=== PATIENT | female | born 1935 | race Caucasian/White ===

== ENCOUNTER 2019-11-15 13:22 | Outpatient (CLI) | payer MEDICARE, SELFPAY ==
--- NOTE | 2019-11-15 13:20 | XR_ITS ---
WS: [id number] LUMBAR SPINE TECHNIQUE: 3 views of the lumbar spine CLINICAL INFORMATION: LOW BACK PAIN COMPARISON: None. FINDINGS: Five [id number] lumbar vertebral bodies. Osteopenia. Mild lumbar curve convex right. Mild compre ssion superior endplate L4 likely chronic. Aortic calcification. Disc space heights are well preserve d. Mild facet arthropathy lower lumbar spine. Pelvic phleboliths. XR/XR lumbar spine 2-3V* [id number] IMPRESSION: 1. Osteopenia. 2. Mild compression superior endplate L4 likely chronic. 3. Aortic calcification. 4. Mild to moderate facet arthropathy lower lumbar spine.
== END 2019-11-15 13:23 | disposition home or self-care (01) ==
PROVIDERS: PCP Chiropractor; Visit Provider Chiropractor
DX: M54.5 Low back pain (principal); M85.88 Other specified disorders of bone density and structure, other site; I70.0 Atherosclerosis of aorta; M47.816 Spondylosis without myelopathy or radiculopathy, lumbar region
CPT/HCPCS: 72100

== ENCOUNTER 2020-10-23 15:05 | Emergency (ER) | payer MEDICARE, MEDICAID, SELFPAY ==
[2020-10-23 15:15] VITALS: BP 191/98; PULSE 71; RESP 18; TEMP 36.7; O2SAT 96; BMI 26.5
--- NOTE | 2020-10-23 15:27 | ED_ITS ---
HPI - Neuro Symptoms/Deficit General: Chief Complaint: Neuro Symptoms/Deficit Stated Complaint: POSSIBLE CVA Time Seen by Provider: 10/23/20 15:10 Source: family Limitations: altered mental status History of Present Illness: HPI Narrative: Ms Kelly is an 85 year old lady Without significant past medical history who presents to the emergency department due to stroke like symptoms. History is aided by the patient's daughter at bedside as the patient has altered mental status and marked aphasia which severely limits patient history taking. Reportedly she is somewhat new to a halfway the overall in fairly good health. Family first noticed her seeming slightly off from normal On 10/20 when she seemed to have more difficulty with using her right arm. Her symptoms subsequently progressed over the next few days and the patient now has marked dysarthric speech which is far from her baseline. the course has been worsening. The intensity is fear appeared she has never had any episodes of the past similar to this. Family has been with her and denies trauma. There are no other known specific provoking, exacerbating, or alleviating factors. Review of Systems General: Reports: ROS unobtainable due to mental status Narrative: Unable to obtain aside from as noted in HPI from family due to mental status change and aphasia Physical Exam Narrative: EXAM NARRATIVE: GENERAL/CONSTITUTIONAL - Ill appearing with obvious neuro deficits. Eyes - PERRL, no conjunctival injection ENMT - Atraumatic external nose and ears. Moist mucous membranes NECK - supple. trachea midline CARDIOVASCULAR - regular rate and rhythm. Peripheral pulses 2+ and equal RESPIRATORY - Transmitted upper airway noises. clear to auscultation bilaterally. No retractions or accessory muscle use. ABDOMEN/GI - Nontender/Nondistended. No tenderness to percussion or evidence of peritonitis MSK - Extremities without obvious deformity or injury SKIN - Warm, Dry NEURO - Marked dysarthria transiently with aphasia other times. Patient appears to understand some questions but not complex ones. Facial droop and strength assymetry noted. PSYCH - Impaired cognition Course ED course: - Monitor, IV access, and vital signs obtained. - The patient was seen and evaluated me at bedside. - Initial evaluation was notable for obvious neuro deficits, no evidence of traumatic mechanism. Unfortunately, onset was days ago - Labs and imaging were ordered. - Labs notable for no acute abnormality to explain stroke like symptoms. - Imaging notable for large area of vasogenic edema and multiple tumors which are likely metastatic in nature. - Decadron ordered - Results were discussed with patient?s daughter at bedside who discussed with other family while we were seeking arrangements for transfer. - The patient?s daughter decided that the patient would not want transfer or further intervention. This decision was made involving the patient as best as possible given current status. I confirmed this to the best of my ability with the patient. I explained to the patient?s daughter that the patient would certainly , though timeline is unclear, without treatment. She verbalized understanding. 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 The presence of a primary tumor was not known to the family and thus would require extensive further diagnosis and treatment. The family is familiar with hospice process and desire this going forward. They would like the patient discharged back to the snf. This is a sad situation but ultimately, I feel, given risks and benefits in the clinical context, that this is a reasonable decision for the family to make and appropriately in the interest of the patient. - Her SNF will facilitate hospice service tomorrow morning. - Prescriptions will be sent with the patient to the SNF, who has protocols and is familiar with use, for palliation of symptoms. - Patient was discharged after transport arranged back to SNF. Vital Signs: Vital signs: Vital Signs Temperature 98.0 F 10/23/20 15:15 Pulse Rate 87 10/23/20 19:45 Respiratory Rate 18 10/23/20 19:45 Blood Pressure 178/90 10/23/20 19:45 Pulse Oximetry 98 10/23/20 19:45 MDM - Neuro Symptoms/Deficit Medical Records: Attestation: I reviewed the patient's medical records. Lab Data: Attestation: I reviewed the patient's lab results. Labs: Lab Results 10/23/20 10/23/20 10/23/20 Range/Units 15:52 15:55 15:55 WBC 8.3 (4.0-10.0) 10^3/ uL RBC 4.76 (4.1-5.3) 10^6/u L Hgb 14.3 (11.5-15.3) g/dL Hct 42.8 (37.0-47.0) % MCV 89.9 (81-99) fL MCH 30.0 (28.0-34.0) pg MCHC 33.4 (30.0-36.0) g/dL RDW 13.7 (12.1-15.1) % Plt Count 257 (130-400) 10^3/c mm MPV 9.4 (7.4-10.4) fL Neut % (Auto) 76.4 % Lymph % (Auto) 15.1 % Barton % (Auto) 7.2 % Eos % (Auto) 0.6 % Baso % (Auto) 0.5 % Neut # (Auto) 6.35 (1.8-7.7) 10^3/u L Lymph # (Auto) 1.3 (0.8-4.8) 10^3/u L Barton # (Auto) 0.6 (0.2-0.9) 10^3/u L Eos # (Auto) 0.1 (0.0-0.8) 10^3/u L Baso # (Auto) 0.0 (0.0-0.1) 10^3/u L Nucleated RBC % (a uto) 0 % Nucleated RBCs # 0.0 /100WBC Sodium 128 L (136-145) mmol/L Potassium 4.8 (3.5-5.1) mmol/L Chloride 94 L (98-107) mmol/L Carbon Dioxide 23 (22-29) mmol/L Anion Gap 15.8 (5-19) BUN 22 (8-23) mg/dL Creatinine 0.5 (0.5-0.9) mg/dL GFR Calculation Not Reportable Glucose 106 (65-115) mg/dL POC Glucose 121 H (70-110) mg/dL Calculated Osmolal ity 270 L (285-295) mOsm/k g Lactate (0.5-2.2) mmol/L Calcium 8.9 (8.5-10.5) mg/dL Total Bilirubin 0.4 (0.15-1.2) mg/dL AST 20 (0-32) U/L ALT 10 (0-33) U/L Alkaline Phosphata se 65 (35-105) IU/L Troponin T Baselin e (0-10) ng/L Troponin T 120 Min cherokee (0-10) ng/L Delta Troponin T (0-10) ABS# Total Protein 6.6 (6.6-8.7) g/dL Albumin 3.4 L (3.5-5.2) g/dL Globulin 3.2 (1.3-4.6) g/dL Procalcitonin 0.05 (0-0.5) ng/mL TSH 1.48 (0.27-4.20) uIU/ mL Free T4 1.77 (0.82-1.77) ng/d L Urine Color (Yellow) Urine Appearance (CLEAR) Urine pH (5-7) Ur Specific Gravit y (1.005-1.030) Urine Protein (Negative) Urine Glucose (UA) (Normal) Urine Ketones (Negative) Urine Blood (Negative) Urine Nitrate (Negative) Urine Bilirubin (Negative) Urine Urobilinogen (Negative) mg/dL Ur Leukocyte Mary ase (Negative) Urine RBC (0-2) /hpf Urine WBC (0-5) /hpf Ur Squamous Epith Cells (0-5) /hpf Amorphous Sediment Urine Bacteria (NONE) /hpf 10/23/20 10/23/20 10/23/20 Range/Units 15:55 15:55 16:00 WBC (4.0-10.0) 10^3/ uL RBC (4.1-5.3) 10^6/u L Hgb (11.5-15.3) g/dL Hct (37.0-47.0) % MCV (81-99) fL MCH (28.0-34.0) pg MCHC (30.0-36.0) g/dL RDW (12.1-15.1) % Plt Count (130-400) 10^3/c mm MPV (7.4-10.4) fL Neut % (Auto) % Lymph % (Auto) % Barton % (Auto) % Eos % (Auto) % Baso % (Auto) % Neut # (Auto) (1.8-7.7) 10^3/u L Lymph # (Auto) (0.8-4.8) 10^3/u L Barton # (Auto) (0.2-0.9) 10^3/u L Eos # (Auto) (0.0-0.8) 10^3/u L Baso # (Auto) (0.0-0.1) 10^3/u L Nucleated RBC % (a uto) % Nucleated RBCs # /100WBC Sodium (136-145) mmol/L Potassium (3.5-5.1) mmol/L Chloride (98-107) mmol/L Carbon Dioxide (22-29) mmol/L Anion Gap (5-19) BUN (8-23) mg/dL Creatinine (0.5-0.9) mg/dL GFR Calculation Glucose (65-115) mg/dL POC Glucose (70-110) mg/dL Calculated Osmolal ity (285-295) mOsm/k g Lactate 1.2 (0.5-2.2) mmol/L Calcium (8.5-10.5) mg/dL Total Bilirubin (0.15-1.2) mg/dL AST (0-32) U/L ALT (0-33) U/L Alkaline Phosphata se (35-105) IU/L Troponin T Baselin e 39 H (0-10) ng/L Troponin T 120 Min [place] (0-10) ng/L Delta Troponin T (0-10) ABS# Total Protein (6.6-8.7) g/dL Albumin (3.5-5.2) g/dL Globulin (1.3-4.6) g/dL Procalcitonin (0-0.5) ng/mL TSH (0.27-4.20) uIU/ mL Free T4 (0.82-1.77) ng/d L Urine Color Yellow (Yellow) Urine Appearance Sl hazy (CLEAR) Urine pH 5 (5-7) Ur Specific Gravit y 1.020 (1.005-1.030) Urine Protein Neg (Negative) Urine Glucose (UA) Norm (Normal) Urine Ketones Negative (Negative) Urine Blood 3+ H (Negative) Urine Nitrate Negative (Negative) Urine Bilirubin Neg (Negative) Urine Urobilinogen Norm (Negative) mg/dL Ur Leukocyte Mary ase Negative (Negative) Urine RBC >100 H (0-2) /hpf Urine WBC None (0-5) /hpf Ur Squamous Epith Cells None (0-5) /hpf Amorphous Sediment Not Reportable Urine Bacteria Trace (NONE) /hpf 10/23/20 Range/Units 17:59 WBC (4.0-10.0) 10^3/ uL RBC (4.1-5.3) 10^6/u L Hgb (11.5-15.3) g/dL Hct (37.0-47.0) % MCV (81-99) fL MCH (28.0-34.0) pg MCHC (30.0-36.0) g/dL RDW (12.1-15.1) % Plt Count (130-400) 10^3/c mm MPV (7.4-10.4) fL Neut % (Auto) % Lymph % (Auto) % Barton % (Auto) % Eos % (Auto) % Baso % (Auto) % Neut # (Auto) (1.8-7.7) 10^3/u L Lymph # (Auto) (0.8-4.8) 10^3/u L Barton # (Auto) (0.2-0.9) 10^3/u L Eos # (Auto) (0.0-0.8) 10^3/u L Baso # (Auto) (0.0-0.1) 10^3/u L Nucleated RBC % (a uto) % Nucleated RBCs # /100WBC Sodium (136-145) mmol/L Potassium (3.5-5.1) mmol/L Chloride (98-107) mmol/L Carbon Dioxide (22-29) mmol/L Anion Gap (5-19) BUN (8-23) mg/dL Creatinine (0.5-0.9) mg/dL GFR Calculation Glucose (65-115) mg/dL POC Glucose (70-110) mg/dL Calculated Osmolal ity (285-295) mOsm/k g Lactate (0.5-2.2) mmol/L Calcium (8.5-10.5) mg/dL Total Bilirubin (0.15-1.2) mg/dL AST (0-32) U/L ALT (0-33) U/L Alkaline Phosphata se (35-105) IU/L Troponin T Baselin e (0-10) ng/L Troponin T 120 Min [place] 37.40 H (0-10) ng/L Delta Troponin T -1.60 L (0-10) ABS# Total Protein (6.6-8.7) g/dL Albumin (3.5-5.2) g/dL Globulin (1.3-4.6) g/dL Procalcitonin (0-0.5) ng/mL TSH (0.27-4.20) uIU/ mL Free T4 (0.82-1.77) ng/d L Urine Color (Yellow) Urine Appearance (CLEAR) Urine pH (5-7) Ur Specific Gravit y (1.005-1.030) Urine Protein (Negative) Urine Glucose (UA) (Normal) Urine Ketones (Negative) Urine Blood (Negative) Urine Nitrate (Negative) Urine Bilirubin (Negative) Urine Urobilinogen (Negative) mg/dL Ur Leukocyte Mary ase (Negative) Urine RBC (0-2) /hpf Urine WBC (0-5) /hpf Ur Squamous Epith Cells (0-5) /hpf Amorphous Sediment Urine Bacteria (NONE) /hpf EKG Data^: EKG 1: Attestation: I personally reviewed and interpreted this EKG as follows: EKG interpretation date: 10/23/20 Prior EKG tracings: not available for review Ischemic changes: non-specific ST-T wave changes Interpretation: 12 lead EKG shows a regular sinus rhythm at a rate of 70. ME interval 208 . Left axis deviation. No St segment abnormalities meeting stemi criteria. Interpretation : sinus rhythm. Left axis deviation. 1st degree AV block EKG 2: Attestation: I personally reviewed and interpreted this EKG as follows: EKG interpretation date: 10/23/20 Prior EKG tracings: available for review Ischemic changes: non-specific ST-T wave changes Interpretation: 12 lead EKG shows a regular sinus rhythm at a rate of 69. ME interval 205. Left axis deviation. No St segment abnormalities meeting stemi criteria. Interpretation : sinus rhythm. Left axis deviation. 1st degree AV block. Similar to prior Critical Care Time Critical Care Time: Critical Care Time: Yes Total Critical Care Time: 35 Attestation: This case had a high probability of a clinically significant, sudden, or life threatening deterioration of this patient's condition which required my full and direct attention, intervention and personal management. Discharge Plan Discharge Patient Disposition: [facility] Clinical Impression: Brain metastases, Stroke-like symptom, Cerebral edema Condition: Critical Referrals: Rodolfo Garcia [Primary Care Provider] - Discharge Diet: Usual diet Discharge Activity: Resume usual activity Patient Instructions: Brain Metastasis (GEN) Activity Restrictions/Additional Instructions: Thank you for visiting the emergency department. You were seen and evaluated for strokelike symptoms. You were found to have brain tumors which are likely metastatic in nature and significant amount of swelling which likely explains your symptoms. We offered emergency transfer which you declined. Please follow-up with your primary care provider. Please return to the emergency department for any reason that you feel is necessary. Coding Level of Care Code ED Water Valve Repairer for Sindy Harris
--- NOTE | 2020-10-23 15:28 | CTR_ITS ---
PROCEDURE INFORMATION: Exam: CT Head Without Contrast Exam date and time: 10/23/2020 3:28 PM Age: 85 years old Clinical indication: Weakness, extremity; Right; Additional info: Stroke like symptoms TECHNIQUE: Imaging protocol: Computed tomography of the head without contrast. Radiation optimization: All CT scans at this facility use at least one of these dose optimization techniques: automated exposure control; mA and/or kV adjustment per patient size (includes targeted exams where dose is matched to clinical indication); or iterative reconstruction. Other technique: STROKE PROTOCOL was implemented. COMPARISON: No relevant prior studies available. RADIATION DOSE METRICS: Total DLP (mGy-cm): 868.24 FINDINGS: Brain: There is extensive left vasogenic edema in the temporal and parietal lobe with mass effect on the left lateral ventricle. There is a rounded density in the left temporal lobe measuring 2.6 x 2.1 cm and a 2nd in the left parietal lobe measuring 1.2 x 1.0 cm. There is rightward midline shift of 1.1 cm. Cerebral ventricles: No ventriculomegaly. Paranasal sinuses: Visualized sinuses are unremarkable. No fluid levels. Mastoid air cells: Visualized mastoid air cells are well aerated. Bones/joints: Unremarkable. No acute fracture. Soft tissues: Unremarkable. CT/CT head wo con* [id number] IMPRESSION: 1. Extensive left temporal lobe and parietal lobe vasogenic edema with possible mass lesions in the left temporal and parietal lobe. MRI with and without contrast is recommended for complete evaluation. Findings likely suggest metastatic disease. 2. Rightward midline shift of 1.1 cm. ASSESSMENT: ASPECTS ([place] Stroke Program Early CT Score) is 10. Radiation Dose CTDIVOL = (mGy): DLP = 868.24 (mGy-cm)
--- NOTE | 2020-10-23 15:28 | XRR_ITS ---
PROCEDURE INFORMATION: Exam: XR Chest Exam date and time: 10/23/2020 3:28 PM Age: 85 years old Clinical indication: Other: AMS TECHNIQUE: Imaging protocol: XR of the chest. Views: 1 view. COMPARISON: No relevant prior studies available. FINDINGS: Lungs: Subtle opacities at bilateral lung bases which may represent developing infiltrates. Hyperinflated lungs. Pleural spaces: Possible trace bilateral pleural effusions. Heart/Mediastinum: Unremarkable. No cardiomegaly. Vasculature: Atherosclerotic calcification of the aortic arch. Bones/joints: Degenerative changes of the spine. XR/XR chest 1V portable [id number] IMPRESSION: Subtle opacities at bilateral lung bases which may represent developing infiltrates. Possible trace bilateral pleural effusions. Hyperinflated lungs. Clinical correlation with chronic obstructive airway disease.
--- NOTE | 2020-10-23 15:29 | ECG_ITS ---
[facility] ED Test Date: 2020-10-23 Pat Name: Bello Kelly Department: Room: Gender: Female Advanced Practice Psychiatric Nurse: : 1935 Requested By: Marek Latif Order Number: [id number] Alla MD: Jessica Abdalla M.D. Measurements Intervals [place] Rate: 70 P: 69 [place]: 208 QRS: -74 QRSD: 78 T: 133 QT: 370 QTc: 400 Interpretive Statements SINUS RHYTHM POSSIBLE LEFT ATRIAL ENLARGEMENT [-0.1mV P WAVE IN V1/V2] MARKED LEFT AXIS DEVIATION [QRS AXIS < -30] POSSIBLE RIGHT VENTRICULAR CONDUCTION DELAY [RSR (QR) IN V1/V2] SEPTAL MYOCARDIAL INFARCTION [40+ ms Q WAVE IN V1/V2], OF INDETERMINATE AGE No previous ECG available for comparison Electronically Signed On 10-25-2020 7:43:31 CDT by Jessica Abdalla M.D. [email or web address] [email or web address] Investingc[id number]
[2020-10-23 16:07] LABS: Glucose Point of Care 121 mg/dL (70-110)
[2020-10-23 16:08] VITALS: BP 191/98; PULSE 91; RESP 20; O2SAT 96
[2020-10-23 16:25] LABS: Basophils % 0.5 %; Eosinophils # 0.1 10^3/uL (0.0-0.8); Eosinophils % 0.6 %; Hematocrit 42.8 % (37.0-47.0); Hemoglobin 14.3 g/dL (11.5-15.3); Lymphocytes # 1.3 10^3/uL (0.8-4.8); Lymphocytes % 15.1 %; Mean Corpuscular HGB Conc 33.4 g/dL (30.0-36.0); Mean Corpuscular Volume 89.9 fL (81-99); Mean Platelet Volume 9.4 fL (7.4-10.4); Monocytes # 0.6 10^3/uL (0.2-0.9); Monocytes % 7.2 %; Neutrophils # 6.35 10^3/uL (1.8-7.7); Neutrophils % 76.4 %; Nucleated Red Blood Cells % 0 %; Platelet Count 257 10^3/cmm (130-400); Red Blood Count 4.76 10^6/uL (4.1-5.3); Red Cell Distribution Width 13.7 % (12.1-15.1); White Blood Count 8.3 10^3/uL (4.0-10.0)
[2020-10-23] MEDS: dexamethasone 10 mg/mL INJ IVP (16:28)
[2020-10-23 16:49] LABS: Add Urine Microscopic? YES; Bilirubin Urine Neg (Negative); Blood Urine 3+ (Negative); Glucose Urine UA Norm (Normal); Ketones Urine Negative (Negative); Leukocyte Esterase Urine Negative (Negative); Nitrate Urine Negative (Negative); Protein Urine Neg (Negative); Urine Appearance SL Hazy (CLEAR); Urine Color Yellow (Yellow); Urobilinogen Urine Norm (Negative); pH Urine 5 (5-7)
[2020-10-23 16:50] LABS: Add Urine Culture? Yes; Bacteria Urine TRACE /hpf; RBC Urine >100 /hpf (0-2)
[2020-10-23 16:55] LABS: Lactate (Lactic Acid level) 1.2 mmol/L (0.5-2.2); Troponin(5th) Baseline 39 ng/L (0-10)
[2020-10-23 16:59] LABS: Procalcitonin 0.05 ng/mL (0-0.5); Thyroid Stimulating Hormone 1.48 uIU/mL (0.27-4.20)
[2020-10-23 17:10] LABS: Alanine Aminotransferase 10 U/L (0-33); Albumin Level 3.4 g/dL (3.5-5.2); Alkaline Phosphatase 65 IU/L (35-105); Anion Gap 15.8 (5-19); Aspartate Amino Transferase 20 U/L (0-32); Blood Urea Nitrogen 22 mg/dL (8-23); Calcium 8.9 mg/dL (8.5-10.5); Carbon Dioxide 23 mmol/L (22-29); Chloride 94 mmol/L (98-107); Creatinine Clr Calc Pharmacy 49.3379; Globulin 3.2 g/dL (1.3-4.6); Glucose 106 mg/dL (65-115); Osmolality Calculated 270 mOsm/kg (285-295); Potassium 4.8 mmol/L (3.5-5.1); Sodium 128 mmol/L (136-145); Total Bilirubin 0.4 mg/dL (0.15-1.2); Total Protein 6.6 g/dL (6.6-8.7)
--- NOTE | 2020-10-23 17:29 | ECG_ITS ---
[facility] ED Test Date: 2020-10-23 Pat Name: Bello Kelly Department: Room: Gender: Female Traffic Operations Engineer: : 1935 Requested By: Marek Latif Order Number: [id number] Alla MD: Jessica Abdalla M.D. Measurements Intervals [place] Rate: 69 P: 70 [place]: 205 QRS: -75 QRSD: 81 T: 130 QT: 376 QTc: 404 Interpretive Statements SINUS RHYTHM POSSIBLE LEFT ATRIAL ENLARGEMENT [-0.1mV P WAVE IN V1/V2] MARKED LEFT AXIS DEVIATION [QRS AXIS < -30] POSSIBLE RIGHT VENTRICULAR CONDUCTION DELAY [RSR (QR) IN V1/V2] NONSPECIFIC ST & T-WAVE ABNORMALITY Compared to ECG 10/23/2020 16:00:10 T-wave abnormality now present Myocardial infarct finding no longer present Electronically Signed On 10-25-2020 10:03:30 CDT by Jessica Abdalla M.D. [id number]
[2020-10-23 18:08] VITALS: BP 188/91; PULSE 88; RESP 18; O2SAT 98
[2020-10-23 19:45] VITALS: BP 178/90; PULSE 87; RESP 18; O2SAT 98
[2020-10-23 21:08] LABS: Free T4 Free Thyroxine 1.77 ng/dL (0.82-1.77)
== END 2020-10-23 19:47 ==
PROVIDERS: Emergency Provider Emergency Medicine; PCP Chiropractor
DX: C79.31 Secondary malignant neoplasm of brain (principal); G93.6 Cerebral edema
CPT/HCPCS: 36415; 36416; 70450; 71045; 80053; 81001; 82962; 83605; 84145; 84439; 84443; 84484; 85025; 87077; 87086; 87186; 93005; 96374; 99284; J1100